=== PATIENT | female | born 1990 | race Caucasian/White ===

== ENCOUNTER 2017-10-23 21:23 | Emergency (ER) | payer OTHER ==
[~2017-10-23] VITALS: Ht 157.5 cm; Wt 97.5 kg
[~2017-10-23 21:23] MED LIST: DIFLUCAN150 MG PO; IBUPROFEN 600600 M1 PO
[2017-10-23] MEDS ORDERED: ABILIFY 2 MG2 M1 PO (21:29)
[2017-10-23] MEDS ORDERED: WELLBUTRIN SR100 MG PO (21:29)
[2017-10-23] MEDS ORDERED: LEXAPRO20 MG PO (21:29)
[2017-10-23] MEDS ORDERED: AMOXICILLIN 50500 MG PO (22:02)
== END 2017-10-23 22:30 | disposition home or self-care (01) ==
LOC: ER 21:23
DX: J02.9 Acute pharyngitis, unspecified (principal)